=== PATIENT | female | born 1940 | race Caucasian/White ===

== ENCOUNTER 2019-07-14 12:51 | Inpatient (IN) ==
[2019-07-14] MEDS ORDERED: NORVASC PO ONE (13:20)
[2019-07-14] MEDS ORDERED: REVATIO PO ONE (13:20)
[2019-07-14 13:37] LABS: BASO# 0.03 X1000 (0.0-0.2); BASO% 0.2 % (0.0-0.8); EOS# 0.01 X1000 (0.0-0.7); EOS% 0.1 % (0.0-10.0); HEMOGLOBIN 10.1 g/dL (12.0-16.0); IMM GRAN# 0.04 X1000 (0.0-0.04); IMM GRAN% 0.3 % (0.0-0.5); LYMPH# 1.01 X1000 (1.2-3.4); LYMPH% 6.8 % (20.5-51.1); MCH 24.3 PG (27-31); MCHC 31.6 g/dL (33-37); MCV 76.9 FL (81-99); MONO# 0.91 X1000 (0.11-0.59); MONO% 6.1 % (1.7-9.3); MPV 10.8 FL (7.4-10.4); NEUT# 12.82 X1000 (1.4-6.5); NEUT% 86.5 % (42.2-75.2); PLT 529 X1000 (130-400); RBC 4.16 XMIL (4.2-5.4); RDW 16.8 % (11.5-14.5); WBC 14.82 X1000 (4.8-10.8)
[2019-07-14 14:16] LABS: AGAP 16; ALB/GLOB RATIO 1.3; ALBUMIN 3.6 g/dL (3.5-5.0); ALKALINE PHOSPHATASE 72 U/L (32-104); BUN 18 mg/dL (8-22); CALCIUM 8.7 mg/dL (8.8-10.2); CHLORIDE 99 mmol/L (98-107); COSMO 278; CREATININE 0.7 mg/dL (0.5-0.9); ESTIMATED GFR > 60; GLUCOSE 131 mg/dL (70-104); GOT 30 U/L (10-30); GPT 18 U/L (10-36); POTASSIUM 2.8 mmol/L (3.5-5.1); SODIUM 137 mmol/L (136-145); TCO2 22 mmol/L (25-35); TOTAL PROTEIN 6.4 g/dL (6.3-8.3)
[2019-07-14 14:33] LABS: LYMPHS 6 % (21-51); MONO 2 % (1-9); SEGS 92 % (42-75)
--- NOTE | 2019-07-14 14:35 | EKG Report ---
Test Performed on : 07/14/2019 12:55:18 PM Test Reason : SOB Blood Pressure : / mmHG Vent. Rate : 105 BPM Atrial Rate : 105 BPM P-R Int : 140 ms QRS Dur : 084 ms QT Int : 386 ms P-R-T Axes : 035 067 254 degrees QTc Int : 510 ms Sinus tachycardia. Possible Left atrial enlargement Septal infarct , age undetermined T wave abnormality, consider inferior ischemia T wave abnormality, consider anterolateral ischemia Abnormal ECG No previous ECGs available Unconfirmed Result
[2019-07-14] MEDS ORDERED: POTASSIUM CHLORIDE 20% LIQUID PO ONE (14:47)
[2019-07-14] MEDS ORDERED: LASIX IV ONE (14:49)
--- NOTE | 2019-07-14 16:52 | PROVIDER DOCUMENTATION ---
This chart was entered by Kurtis Cabrera Scribe, acting as scribe for Eddie Richards MD. HPI-General Adult - General Chief Complaint: Shortness of Breath Stated Complaint: SOB Time Seen by Provider: 07/14/19 13:01 Source: patient, family Allergies/Adverse Reactions: Patient Allergies Allergy/AdvReac Type Severity Reaction Status Date / Time codeine Allergy ITCHING Verified 07/14/19 13:20 Home Medications: Home Medication List Medication Instructions Recorded Confirmed Last Taken Type Amlodipine [Norvasc] 5 mg PO BID 07/14/19 07/14/19 Unknown History Aspirin 325 mg PO DAILY 07/14/19 07/14/19 Unknown History Bupropion HCl [Wellbutrin Xl] 300 mg PO DAILY 07/14/19 07/14/19 Unknown History Cholecalciferol (Vitamin D3) 5,000 unit PO DAILY 07/14/19 07/14/19 Unknown History [Vitamin D3] Cyanocobalamin (Vitamin B-12) 2,500 mcg PO DAILY 07/14/19 07/14/19 Unknown History [Vitamin B12] Esomeprazole [Nexium] 40 mg PO BID 07/14/19 07/14/19 Unknown History Fenofibrate Nanocrystallized 145 mg PO DAILY 07/14/19 07/14/19 Unknown History [Tricor] Fluoxetine HCl [Prozac] 40 mg PO DAILY 07/14/19 07/14/19 Unknown History Hydralazine [Apresoline] 50 mg PO BID 07/14/19 07/14/19 Unknown History Levothyroxine Sodium [Synthroid] 175 mcg PO DAILY 07/14/19 07/14/19 Unknown History Losartan [Cozaar] 50 mg PO BID 07/14/19 07/14/19 Unknown History Sildenafil Citrate [Sildenafil] 20 mg PO TID 07/14/19 07/14/19 Unknown History - History of Present Illness -Gen Adult Nature of Presenting Problems: 78 yof presents to the ed w/c/o SOB. family states coming from office [employer]. family states pt " just moved here from [place] and been out of medications for 2 months." pt states SOB started Friday night (middle of night). pt has hx of Pulmonary Hypertension, and Scleradema. Location of Pain/Injury: reports: none Pain Radiation: reports: no radiation Quality of Pain: reports: none Severity: reports: mild Onset/Duration: reports: 4 days ago Timing: reports: still present Context/Activities at Onset: reports: none Modifying Factors: improves with: nothing Associated Symptoms: reports: shortness of breath. denies: chest pain, constip ation, diarrhea, fever/chills, headaches, muscle aches, nausea, vomiting Similar Symptoms Previously?: No Recently seen or treated by another doctor?: Yes (BETSY Lozada) Review of Systems - Adult - REVIEW OF SYSTEMS - ADULT Constitutional: denies: chills, fever Eyes: reports: no symptoms reported Ears, Nose, Mouth & Throat: denies: ear pain, nose pain, throat pain Cardiovascular: reports: no symptoms reported Respiratory: reports: see HPI, shortness of breath. denies: cough, wheezing Gastrointestinal: denies: abdominal pain, constipation, diarrhea, nausea, vomiting Genitourinary: reports: no symptoms reported Musculoskeletal: denies: back pain, neck pain Integumentary: reports: no symptoms reported Neurological: denies: headache/migraines, numbness Psychiatric: reports: no symptoms reported Endocrine: reports: no symptoms reported Hematologic/Lymphatic: reports: no symptoms reported Allergic/Immunologic: reports: no symptoms reported All Other Systems: Reviewed and Negative Past History - Adult - PAST MEDICAL HISTORY-ADULT Review of Records: reports: Old Records Reviewed, Nursing Assessment Review, Medications Reviewed, Social history reviewed & non-contributory. Major Childhood Illnesses: reports: denies history Cardiovascular: reports: HTN, hyperlipidemia Respiratory: reports: denies history Gastrointestinal: reports: GERD Obstetrical/Gynecological: reports: denies history Genitourinary: reports: denies history Musculoskeletal: reports: denies history Neurological: reports: denies history Psychiatric: reports: denies history Endocrine/Immune: reports: denies history Other Conditions: reports: denies history - PRIOR SURGERIES/PROCEDURES Surgical/Procedure History: reports: cholecystectomy - IMMUNIZATION STATUS Childhood Immunizations: See Nurse Assessment Flu Vaccine: See Nurse Assessment - FAMILY HISTORY Family History: reviewed, not pertinent - SOCIAL HISTORY Smoking: quit greater than 1 year, cigarettes Substance Use: denies Physical Exam-General - PHYSICAL EXAM-ADULT Initial Vital Signs Reviewed: Yes - CONSTITUTIONAL General Appearance: appears well, alert, mild distress - EYES Eyes: PERRL/EOMI - HEAD, EARS, NOSE, MOUTH & THROAT HENMT: pharynx normal - RESPIRATORY Respiratory: crackles (mild diffused). negative: normal breath sounds (on exam pt has labored breathing) - CARDIOVASCULAR Cardiovascular: tachycardia (102) - CHEST (BREASTS) Chest/Breast: deferred - GENITOURINARY Female Genitalia/Pelvic Exam: deferred Rectal Exam: deferred Hemoccult Exam: deferred - MUSCULOSKELETAL Extremity: pedal edema (1+), other (on exam finger tips are slightly blue) Progress - PLAN OF CARE/RESULTS Progress/Plan/Lab Results: Vital Signs - 8 hr 07/14/19 12:52 Pulse Rate 102 H Respiratory Rate 28 H Blood Pressure 172/80 O2 Sat by Pulse Oximetry 85 L Result Diagrams: 07/14/19 13:10 07/14/19 13:10 - EKG 1 Time of EKG reading by physician:: 12:55 EKG Read and Signed by:: Eddie Richards EKG Interpretation (*Must complete 3 of following elements*): Abnormal Rate: 105 Rhythm: sinus tachycardia [place]: normal QRS: normal [place] Interval: normal ST Wave: normal (T wave abnormality, consider inferior ischemia T wave abnormality, consider anterolateral ischemia) Comments: possible Lt atrial enlargement/ septal infract, age undetermind - CONSULTS/PCP/HOSPITALIST Notification #1 *Consult/PCP/Hospitalist*: consult w/ Dr. Llamas Time Discussed: 16:00 (will see as consult) Consult Disposition: Admit Departure - Departure Date of Disposition Decision: 07/14/19 Time of Disposition Decision: 13:38 DIAGNOSIS: Respiratory insufficiency, Pulmonary hypertension Pulmonary edema Qualifiers: Chronicity: acute Qualified Code(s): J81.0 - Acute pulmonary edema Disposition: ADMITTED INPATIENT 09 Certified Medical Emergency: Emergent Condition: Stable Referrals and Follow-Ups: Anita Lozada MD [Primary Care Provider] - - Critical Care Note This patient required my direct & personal management of CC.: No Attestation - Physician/ DEB Attestation Patient care was provided by Advanced Practice Provider:: No The physician spent face to face time with patient:: Yes Advanced Practice Provider documentation review:: Supervising physician onsite and consulted in the evaluation and care of this patient. The physician did have a face to face encounter with the patient. This chart was documented by the indicated scribe, (Kurtis Cabrera, [employer]) and accurately reflects the services I performed and decisions made by me, Eddie Richards MD, as attested by the provider's signature.
--- NOTE | 2019-07-14 17:07 | HISTORY AND PHYSICAL ---
HISTORY OF PRESENT ILLNESS: This is a 78-year-old. She is fairly new to [place]. She moved from [place] to be with her daughter. Her past medical history and her main complaint is shortness of breath for the last 3-4 days. It has progressed. She does have significant orthopnea. Denies any paroxysmal nocturnal dyspnea. No chest pain. No palpitation. No pleuritic pain. No fever or chills, or productive cough. PAST MEDICAL HISTORY: By her report: 1. Scleroderma, diagnosed about 4 years ago. She has not had esophageal dysfunction yet and has not had any evidence of pulmonary fibrosis. 2. Hypertension. 3. Hypertriglyceridemia. 4. Primary hypothyroidism. PAST SURGICAL HISTORY: She did not report any surgeries. ALLERGIES: Codeine. FAMILY HISTORY: Positive for coronary artery disease in both her mother and father. One of her brothers had some heart trouble, but apparently he had a drug addiction by her report. SOCIAL HISTORY: Negative for alcohol. She used to smoke years ago, but quit over 40 years ago. No illicit drugs. REVIEW OF SYSTEMS: General: She has not had much appetite in the last couple days, but has had an appetite today. She said she is craving a grilled cheese sandwich. HEENT: No change in visual or hearing acuity. She has dry mouth and eyes related to her scleroderma. Respiratory as above: Increased orthopnea, increased dyspnea with exertion and marked dyspnea with rest now. No cough. No pleuritic pain. No sputum production. Cardiovascular: No chest pain or tachycardic palpitations. No history of heart issues. Apparently she had a heart catheterization when they diagnosed scleroderma and they told her that her coronaries look good and good left ventricular function, was her report. GI and : No gross hematuria or dysuria. No change in bowels. No hematochezia. Musculoskeletal/neurologic: No focal complaints. Endocrinologic/hemologic: History of primary hypothyroidism and of course scleroderma. PHYSICAL EXAMINATION: GENERAL: On exam she is awake, alert, oriented x3, pleasant. Weight 128 pounds. Height 5 feet 4 inches. VITAL SIGNS: Pulse 93, respirations 19, 141/85. HEENT: Pupils are equal and round. LUNGS: Clear in all lung rueda. I can hear some rales at the bases of her lungs, but otherwise clear. She is on nasal cannula. CARDIOVASCULAR: Regular rhythm and rate without murmur or S3. Carotid, radial, and femoral pulses 2+ and symmetrical. ABDOMEN: Soft. SKIN: Warm and dry. EXTREMITIES: No pedal edema. NECK: Supple, without any thyromegaly. No lymphadenopathy. LABORATORY DATA: White count 14,820, hematocrit 32, platelet count 529,000. Sodium 137, potassium 2.8, chloride 99, BUN 18, creatinine 0.7. AST is 30, ALT is 18, alkaline phosphatase is 72. Troponin 0.112. ProBNP was 35,000. Total protein 6.4, albumin 3.6. ASSESSMENT AND PLAN: 1. Pulmonary venous hypertension appreciated radiographically, and clinically increased orthopnea. We will diurese her with some Lasix. We will try 40 mg intravenously q.12. We will check and follow her electrolytes including magnesium tomorrow, check her thyroid functions as well with B12 and folate. 2. History of scleroderma, aware. There has been no evidence before and no sign of pulmonary fibrosis related to scleroderma. 3. History of hypertension. Blood pressures appear to be reasonable. 4. History of hypertriglyceridemia. 5. History of primary hypothyroidism. 6. We will get an echocardiogram, evaluate left ventricular function. We will check serial cardiac enzymes. I do not see any evidence of cardiac ischemia at this time, and see how she response to diuresis. I also do not see any evidence of infection such as pneumonia. cc: Aristeo Ibanez MD
[2019-07-14] MEDS ORDERED: TYLENOL PO PRN (17:27)
[2019-07-14] MEDS ORDERED: ZOFRAN IV PRN (17:27)
[2019-07-14 19:49] LABS: CK INDEX 5.8 (0.0-2.5); CK-MB 14.59 ng/mL (0.0-5.0)
[2019-07-14] MEDS: NORVASC PO SCH (21:00)
[2019-07-14] MEDS: COZAAR PO SCH (21:57)
[2019-07-14] MEDS: REVATIO PO SCH (21:57)
[2019-07-14] MEDS: NEXIUM PO SCH (21:57)
[2019-07-14] MEDS: APRESOLINE PO SCH (21:57)
[2019-07-15 02:44] LABS: CK INDEX 5.5 (0.0-2.5); CK-MB 11.19 ng/mL (0.0-5.0)
[2019-07-15] MEDS: LASIX IV SCH ×2 (05:07→17:22)
[2019-07-15 06:02] LABS: BASO# 0.05 X1000 (0.0-0.2); BASO% 0.4 % (0.0-0.8); EOS# 0.17 X1000 (0.0-0.7); EOS% 1.3 % (0.0-10.0); HEMATOCRIT 30.1 % (37.0-47.0); HEMOGLOBIN 9.4 g/dL (12.0-16.0); IMM GRAN# 0.02 X1000 (0.0-0.04); IMM GRAN% 0.2 % (0.0-0.5); LYMPH# 1.36 X1000 (1.2-3.4); LYMPH% 10.6 % (20.5-51.1); MCH 23.9 PG (27-31); MCHC 31.2 g/dL (33-37); MCV 76.4 FL (81-99); MONO# 0.85 X1000 (0.11-0.59); MONO% 6.6 % (1.7-9.3); MPV 10.9 FL (7.4-10.4); NEUT# 10.37 X1000 (1.4-6.5); NEUT% 80.9 % (42.2-75.2); PLT 468 X1000 (130-400); RBC 3.94 XMIL (4.2-5.4); RDW 16.6 % (11.5-14.5); WBC 12.82 X1000 (4.8-10.8)
[2019-07-15 06:30] LABS: ESTIMATED GFR > 60
[2019-07-15 06:35] LABS: AGAP 15; BUN 18 mg/dL (8-22); CHLORIDE 101 mmol/L (98-107); COSMO 282; CREATININE 0.7 mg/dL (0.5-0.9); GLUCOSE 105 mg/dL (70-104); SODIUM 140 mmol/L (136-145); TCO2 24 mmol/L (25-35)
[2019-07-15 06:36] LABS: POTASSIUM 2.5 mmol/L (3.5-5.1)
[2019-07-15] MEDS: POTASSIUM CHLORIDE 20 MEQ/SWI 20 MEQ/100 ML IVPB IV SCH ×2 (08:23→11:17)
[2019-07-15] MEDS: SYNTHROID PO SCH (08:24)
[2019-07-15] MEDS: TRICOR PO SCH (08:24)
[2019-07-15] MEDS: COZAAR PO SCH ×2 (08:24→21:03)
[2019-07-15] MEDS: VITAMIN D PO SCH (08:24)
[2019-07-15] MEDS: NEXIUM PO SCH ×2 (08:24→21:03)
[2019-07-15] MEDS: VITAMIN B-12 PO SCH (08:24)
[2019-07-15] MEDS: PROZAC PO SCH (08:24)
[2019-07-15] MEDS: NORVASC PO SCH ×2 (08:24→21:03)
[2019-07-15] MEDS: WELLBUTRIN XL PO SCH (08:24)
[2019-07-15] MEDS: APRESOLINE PO SCH ×2 (08:24→21:03)
[2019-07-15] MEDS: ASPIRIN PO SCH (08:24)
[2019-07-15] MEDS: REVATIO PO SCH ×3 (08:25→21:04)
[2019-07-15] MEDS ORDERED: NS 500 ML ONE (10:33)
--- NOTE | 2019-07-15 12:13 | PROGRESS NOTE ---
DATE: 07/15/2019 Ms. Banks was admitted yesterday. She is a patient of Dr. Anita Lozada. A 78-year-old, fairly new here. Moved to [place]. Main complaint has been shortness of breath that has progressed. She has a past history of scleroderma diagnosed about 4 years ago, hypertension, hypertriglyceridemia, and primary hypothyroidism. She said she is breathing better this morning and comfortable. PHYSICAL EXAMINATION: Temperature 97.6. She has remained afebrile. Pulse 90, respirations 24, and blood pressure 145/59. HEENT: Pupils are equal and round. Lungs are clear in all lung rueda. Cardiovascular Examination: Regular rhythm and rate without murmur or S3. Abdomen is soft. Skin is warm and dry. REVIEW OF LABS: We did supplement some potassium. She said that burned in the IV pretty bad, so we will give her p.o. potassium from here. We are waiting on her echocardiogram and left ventricular studies. We have diuresed her. REVIEW OF HER ORDERS: She is on Norvasc 5 mg b.i.d., Wellbutrin XL 300 mg a day, aspirin 325 mg a day, vitamin D3 with 5000 units a day, B12 at 2500 mcg p.o. daily, Nexium 40 mg b.i.d., Tricor 145 mg p.o. daily, Prozac 40 mg a day, Lasix 40 mg IV q.12, Apresoline 50 mg b.i.d., Synthroid 175 mcg daily, Cozaar 50 mg twice a day, sildenafil 20 mg p.o. t.i.d., and we gave her some potassium this morning. cc: Aristeo Ibanez MD
--- NOTE | 2019-07-15 13:28 | ECHO REPORT ---
ORDER DATE: 07/14/2019 ECHOCARDIOGRAPHIC MEASUREMENTS: 1. Interventricular septum 1.6. 2. Left ventricular posterior wall 1.6. 3. Diastolic diameter 4.9. 4. Aorta 2.8. SUMMARY: 1. Aortic valve leaflets are sclerosed, trileaflet. 2. There is left atrial enlargement. 3. Mitral valve leaflets are normal. There is mitral annular calcification. 4. Tricuspid valve is normal. 5. Normal left ventricular cavity size. Concentric. 6. Left ventricular hypertrophy, estimated ejection fraction of 40%. There is severe concentric hypertrophy. There is left atrial enlargement. Grade 3 diastolic dysfunction. There is moderate mitral regurgitation. 7. There is no aortic stenosis. There is mild aortic regurgitation. There is mild tricuspid regurgitation. Peak velocity across the tricuspid valve was 3 m/sec. 8. Pulmonary artery systolic pressure of 50 mmHg. 1. There is no pericardial effusion or obvious intracardiac mass or thrombus seen. cc: MD Charo Vogel CRNP
[2019-07-16] MEDS: LASIX IV SCH ×2 (05:48→17:01)
[2019-07-16 06:49] LABS: AGAP 13; BUN 21 mg/dL (8-22); CALCIUM 7.6 mg/dL (8.8-10.2); CHLORIDE 97 mmol/L (98-107); COSMO 277; CREATININE 0.8 mg/dL (0.5-0.9); ESTIMATED GFR > 60; GLUCOSE 99 mg/dL (70-104); MAGNESIUM 1.2 mg/dL (1.5-2.7); POTASSIUM 2.4 mmol/L (3.5-5.1); SODIUM 137 mmol/L (136-145); TCO2 27 mmol/L (25-35)
[2019-07-16] MEDS ORDERED: KLOR-CON PO ONE (07:06)
[2019-07-16] MEDS ORDERED: POTASSIUM CHLORIDE 20 MEQ/SWI 20 MEQ/100 ML IVPB IV SCH (08:00)
[2019-07-16] MEDS: ASPIRIN PO SCH (08:15)
[2019-07-16] MEDS: APRESOLINE PO SCH ×2 (08:15→20:09)
[2019-07-16] MEDS: NORVASC PO SCH ×2 (08:16→20:09)
[2019-07-16] MEDS: WELLBUTRIN XL PO SCH (08:16)
[2019-07-16] MEDS: SYNTHROID PO SCH (08:16)
[2019-07-16] MEDS: NEXIUM PO SCH ×2 (08:16→20:09)
[2019-07-16] MEDS: PROZAC PO SCH (08:16)
[2019-07-16] MEDS: VITAMIN D PO SCH (08:16)
[2019-07-16] MEDS: VITAMIN B-12 PO SCH (08:16)
[2019-07-16] MEDS: COZAAR PO SCH ×2 (08:16→20:09)
[2019-07-16] MEDS: REVATIO PO SCH ×3 (08:16→20:09)
[2019-07-16] MEDS: TRICOR PO SCH (08:16)
[2019-07-16 08:57] LABS: AGAP 17; BUN 20 mg/dL (8-22); CHLORIDE 99 mmol/L (98-107); COSMO 280; CREATININE 0.8 mg/dL (0.5-0.9); ESTIMATED GFR > 60; GLUCOSE 104 mg/dL (70-104); POTASSIUM 2.8 mmol/L (3.5-5.1); SODIUM 139 mmol/L (136-145); TCO2 23 mmol/L (25-35)
[2019-07-16] MEDS ORDERED: MAGNESIUM SULFATE 2 GM/S.W.I. 2 GM/50 ML IVPB IV ONE (13:48)
[2019-07-16] MEDS ORDERED: XYLOCAINE 2% JELLY TOP PRN (13:52)
--- NOTE | 2019-07-16 14:09 | PROGRESS NOTE ---
DATE: 07/16/2019 SUBJECTIVE: Ms. Banks says she is breathing better, feeling better, still a little bit short of breath. She is complaining that her fingers hurt and at home, she uses some lidocaine she rubs on her fingers, it seems to help. OBJECTIVE: Vital Signs: Temperature 98 degrees, pulse 84, respirations 22, blood pressure 100/45. HEENT: Pupils are equal and round. Lungs: Clear in all lung rueda. Cardiovascular: Regular rhythm and rate without murmur or S3. Input and Output: Urine output is 1900 mL. ASSESSMENT AND PLAN: Shortness of breath. Echocardiogram with Doppler done on the , left ventricular ejection fraction about 40%, severe concentric hypertrophy. She has left atrial enlargement, grade 3 diastolic dysfunction, moderate to mild mitral regurgitation. There is no aortic stenosis. Tricuspid valve was normal. Pulmonary artery pressure estimated about 50 mmHg. So she is improving with diuresis and seemed to be making some progress. REVIEW OF LABS: Chemistries from today: Sodium 139, potassium 2.8, chloride 99, BUN 20, creatinine 0.8. Her magnesium was 1.2. So she is on potassium and I will have her on p.o. magnesium as well. In fact, we will give her 2 g of magnesium IV. cc: Aristeo Ibanez MD
[2019-07-16] MEDS: MAG-OX PO SCH (20:09)
[2019-07-17] MEDS: LASIX IV SCH (05:31)
[2019-07-17 06:30] LABS: AGAP 14; BUN 27 mg/dL (8-22); CALCIUM 7.1 mg/dL (8.8-10.2); CHLORIDE 97 mmol/L (98-107); COSMO 281; CREATININE 0.8 mg/dL (0.5-0.9); ESTIMATED GFR > 60; GLUCOSE 97 mg/dL (70-104); POTASSIUM 2.7 mmol/L (3.5-5.1); SODIUM 138 mmol/L (136-145); TCO2 27 mmol/L (25-35)
[2019-07-17] MEDS: VITAMIN D PO SCH (08:35)
[2019-07-17] MEDS: PROZAC PO SCH (08:35)
[2019-07-17] MEDS: ASPIRIN PO SCH (08:35)
[2019-07-17] MEDS: REVATIO PO SCH (08:35)
[2019-07-17] MEDS: VITAMIN B-12 PO SCH (08:35)
[2019-07-17] MEDS: APRESOLINE PO SCH (08:35)
[2019-07-17] MEDS: MAG-OX PO SCH (08:35)
[2019-07-17] MEDS: NEXIUM PO SCH (08:35)
[2019-07-17] MEDS: COZAAR PO SCH (08:35)
[2019-07-17] MEDS: SYNTHROID PO SCH (08:35)
[2019-07-17] MEDS: TRICOR PO SCH (08:35)
[2019-07-17] MEDS: WELLBUTRIN XL PO SCH (08:35)
[2019-07-17] MEDS: NORVASC PO SCH (08:39)
--- NOTE | 2019-07-17 11:19 | DISCHARGE SUMMARY ---
ADMISSION DATE: 07/14/2019 DISCHARGE DATE: 07/17/2019 HISTORY OF PRESENT ILLNESS: She is a 78-year-old patient of Dr. Anita Lozada, fairly new to [place]. I do not think she has seen Dr. Lozada; that she moved from [place] with her daughter. Past medical history complains of shortness of breath for 3 or 4 days that seems to have progressed. Denies any paroxysmal nocturnal dyspnea, but seemed to have a degree of orthopnea. PAST MEDICAL HISTORY: 1. Scleroderma was diagnosed about 4 years ago. She has not had any esophageal dysfunction. No evidence of pulmonary fibrosis. 2. Hypertension. 3. Hypertriglyceridemia. 4. Pulmonary hypothyroidism. PAST SURGICAL HISTORY: Does not report any surgery. HOSPITAL COURSE: Admitted with pulmonary venous hypertension and we did give her some Lasix. Echocardiogram revealed left ventricular hypertrophy. Ejection fraction about 40%. Severe concentric hypertrophy and left atrial enlargement. Normal left ventricular cavity size. There is no aortic stenosis. No significant valvular dysfunction. Dr. Kim read the echocardiogram. She seemed to respond. We did replace magnesium and potassium, which were low and she clinically improved. Her breathing was very comfortable. We did not find any evidence of infection. On her chest x-ray on presentation, some cardiomegaly, diffuse bilateral infiltrates consistent with pulmonary edema. [employer] she could go home on 07/17/2019. DISCHARGE ORDERS: Will have her on Norvasc 5 mg b.i.d., aspirin 325 mg a day, Wellbutrin XL 300 mg daily, vitamin D 5000 units p.o. daily, vitamin B 12 2500 mcg p.o. daily, Nexium (I think we will have her on 40 mg once a day), Tricor 145 mg a day, Prozac 40 mg a day. We will let her have Lasix 40 mg p.o. just once every morning, Apresoline 50 mg twice a day, Synthroid 175 mcg daily, Cozaar 50 mg b.i.d. and give her Mag-Ox 400 mg p.o. b.i.d. She takes Revatio 20 mg p.o. t.i.d. We will also give her some potassium. We will do Klor-Con 40 mEq once a day. She will follow up with primary care. cc: Aristeo Ibanez MD
[2019-07-17 12:25] VITALS: BP 97/43
== END 2019-07-17 12:38 | disposition home or self-care (01) | DRG 314 ==
LOC: ED 12:51 → EDIPHOLD 17:23 → 2N 21:46
PROVIDERS: ATTEND Emergency Medicine